=== PATIENT | male | born 1980 | race Caucasian/White ===

== ENCOUNTER 2018-08-14 23:15 | Emergency (ER) | payer OTHER ==
[2018-08-14 23:28] VITALS: TEMP 97.9
[2018-08-15] MEDS ORDERED: LORazepam 1 MG TAB PO STA (00:26)
--- NOTE | 2018-08-15 00:27 | ED ---
Anxiety HPI - General Chief Complaint: Anxiety Stated Complaint: anxiety Time Seen by Provider: 08/14/18 23:44 Source: patient Mode of arrival: ambulatory - History of Present Illness Initial Comments: 38-year-old male patient presents to the emergency department today for evaluation of increased anxiety. Patient states that around 4:30 this afternoon he started feeling anxious. States that since then his symptoms have worsened and include feeling "foggy", has had intermittent periods of dizziness , and feels "out of it". Patient does admit that he had little sleep last evening. States he has been up since 4:30 this morning. States that he does take Paxil to help with anxiety but does not take any abortive medications for panic attacks. He denies any fever, chills, cough, nasal congestion, sore throat. Denies any chest pain or trouble breathing. Denies any current abdominal pain, nausea, or vomiting. The patient does have history of anxiety and panic attacks. States that his started out his usual panic attack but the did have a couple new symptoms including the thought disturbance and dizziness. Patient also admits that he has not eaten very much today. Patient denies any recent rash, diarrhea, constipation, back pain, numbness, tingling, weakness, hematuria, dysuria, urinary urgency, urinary frequency, headache, visual changes, or any other complaints. - Related Data Home Medications: Home Medications Medication Instructions Recorded Confirmed Desvenlafaxine Succinate [Pristiq 50 mg PO DAILY 11/29/13 01/13/16 ER] Propranolol HCl [Inderal] 80 mg PO DAILY 11/29/13 01/13/16 Omeprazole 20 mg PO DAILY 01/11/16 01/13/16 Allergies/Adverse Reactions: Allergies Allergy/AdvReac Type Severity Reaction Status Date / Time Penicillins Allergy Mild Rash/Hives Verified 01/13/16 09:42 acetaminophen [From Vicodin] Allergy Dyspnea Verified 01/13/16 09:42 hydrocodone bitartrate Allergy Dyspnea Verified 01/13/16 09:42 [From Vicodin] Review of Systems ROS Statement: Those systems with pertinent positive or pertinent negative responses have been documented in the HPI. ROS Other: All systems not noted in ROS Statement are negative. Past Medical History Past Medical History: Hypertension, Sleep Apnea/CPAP/BIPAP Additional Past Medical History / Comment(s): swallowing difficulties History of Any Multi-Drug Resistant Organisms: None Reported Past Surgical History: No Surgical Hx Reported Additional Past Surgical History / Comment(s): all teeth removed Past Anesthesia/Blood Transfusion Reactions: Motion Sickness Additional Past Anesthesia/Blood Transfusion Reaction / Comment(s): states has never had anesthesia Past Psychological History: Anxiety, Depression, Panic Disorder Smoking Status: Former smoker Past Alcohol Use History: None Reported Past Drug Use History: None Reported - Past Family History Father Family Medical History: Coronary Artery Disease (CAD) Brother(s) Family Medical History: Coronary Artery Disease (CAD) Additional Family Medical History / Comment(s): tricupsid valve replacement General Exam Limitations: no limitations General appearance: alert, in no apparent distress, other (This is a well- developed, well-nourished adult male patient in no acute distress. Vital signs upon presentation are temperature 97.9F, pulse 97, respirations 18, blood pressure 143/91, pulse ox 99% on room air.) Eye exam: Present: normal appearance, PERRL, EOMI. Absent: scleral icterus, conjunctival injection, nystagmus, periorbital swelling ENT exam: Present: normal exam, mucous membranes moist, TM's normal bilaterally Respiratory exam: Present: normal lung sounds bilaterally. Absent: respiratory distress, wheezes, rales, rhonchi, stridor Cardiovascular Exam: Present: regular rate, normal rhythm, normal heart sounds. Absent: systolic murmur, diastolic murmur, rubs, gallop, clicks GI/Abdominal exam: Present: soft, normal bowel sounds. Absent: distended, tenderness, guarding, rebound, rigid Neurological exam: Present: alert, oriented X3, CN II-XII intact, other ( Strength in upper extremities is 5/5.) Psychiatric exam: Present: normal affect, normal mood Skin exam: Present: warm, dry, intact, normal color. Absent: rash Course Vital Signs 08/14/18 08/15/18 23:23 00:37 Temperature 97.9 F Pulse Rate 97 86 Respiratory 18 19 Rate Blood Pressure 143/91 143/88 O2 Sat by Pulse 99 99 Oximetry Medical Decision Making - Medical Decision Making 38-year-old male patient presented to the emergency department today for complaints of increased anxiety, mental fog, and some dizziness. Physical examination is unremarkable. Patient is neurologically intact with no focal deficits. Tympanic membranes appear normal. Patient did admit to history of anxiety and panic attacks. Patient states symptoms are consistent with his usual panic attacks other than the new symptoms of mental fog and dizziness. Patient also admitted that he had not eaten very much today and had very little sleep last evening and had been awake since 04 30 this morning. I feel his symptoms are related to a combination of anxiety and sleep deprivation.. Processes appear intact, again he is neurologically intact has no focal deficits. We will administer Ativan here in the emergency department. Discharged home to rest. He'll be given the day off of work. He is instructed to return immediately should his symptoms change or worsen. Return parameters were discussed in detail. He verbalizes understanding and agrees with this plan. Disposition Clinical Impression: Anxiety, Dizziness Disposition: HOME SELF-CARE Condition: Good Instructions (If sedation given, give patient instructions): Generalized Anxiety Disorder (ED), Dizziness (ED) Additional Instructions: Follow-up with her primary care physician for further evaluation in 1-2 days. Return to the emergency department immediately for any new, worsening, or concerning symptoms. Is patient prescribed a controlled substance at d/c from ED?: No Referrals: Robert Baker DO [Primary Care Provider] - 1-2 days Time of Disposition: 00:27
[2018-08-15 01:13] VITALS: BP 143/88; PULSE 86; RESP 19
== END 2018-08-15 00:37 | disposition home or self-care (01) ==
LOC: EC 23:15
DX: F41.0 Panic disorder [episodic paroxysmal anxiety] (principal); R42 Dizziness and giddiness; H53.9 Unspecified visual disturbance; I10 Essential (primary) hypertension; F32.9 Major depressive disorder, single episode, unspecified; G47.30 Sleep apnea, unspecified; Z99.89 Dependence on other enabling machines and devices; Z87.891 Personal history of nicotine dependence; Z79.899 Other long term (current) drug therapy; Z88.0 Allergy status to penicillin; Z88.5 Allergy status to narcotic agent
CPT/HCPCS: 99282

== ENCOUNTER 2018-10-08 15:17 | Emergency (ER) | payer OTHER ==
[2018-10-08] MEDS ORDERED: LORazepam 1 MG TAB PO STA (15:49)
--- NOTE | 2018-10-08 16:25 | ED ---
Anxiety HPI - General Chief Complaint: Anxiety Stated Complaint: Panic attack Time Seen by Provider: 10/08/18 15:22 Source: patient, RN notes reviewed Mode of arrival: EMS Limitations: no limitations - History of Present Illness Initial Comments: 38-year-old male presents emergency department via EMS for acute panic attack/anxiety. Patient states she's been having worsening symptoms over the last 2 months. Patient does admit that he's had increased stressors including work, home life, other reasons. Patient states he is currently on Pristiq he st ates that he was switched from Paxil to Pristiq. Patient used to be on Pristiq and helped. Patient states he is on generic medication at this time states it does not seem be as effective as the trade name. Patient states that today he became very anxious states he started to do his breathing exercises and states that did not help. He states that he started getting tingly in his extremities. Patient denies any current chest pain or shortness breath. He doesn't at the symptoms are improved since arriving to the emergency department. Patient states she was given Xanax states that he tries not to take them. Patient denies any homicidal or suicidal ideation. Patient is concerned that there may be something else going on he has had recent lab work which was benign. - Related Data Home Medications: Home Medications Medication Instructions Recorded Confirmed Desvenlafaxine Succinate [Pristiq 50 mg PO DAILY 11/29/13 10/08/18 ER] Omeprazole 20 mg PO DAILY 01/11/16 10/08/18 ALPRAZolam [Xanax] 0.5 mg PO DAILY PRN 10/08/18 10/08/18 Metoprolol Succinate [Toprol XL] 25 mg PO HS 10/08/18 10/08/18 Allergies/Adverse Reactions: Allergies Allergy/AdvReac Type Severity Reaction Status Date / Time Penicillins Allergy Mild Rash/Hives Verified 10/08/18 16:19 acetaminophen [From Vicodin] Allergy Dyspnea Verified 10/08/18 16:19 hydrocodone bitartrate Allergy Dyspnea Verified 10/08/18 16:19 [From Vicodin] Review of Systems ROS Statement: Those systems with pertinent positive or pertinent negative responses have been documented in the HPI. ROS Other: All systems not noted in ROS Statement are negative. Past Medical History Past Medical History: Hypertension, Sleep Apnea/CPAP/BIPAP Additional Past Medical History / Comment(s): swallowing difficulties History of Any Multi-Drug Resistant Organisms: None Reported Past Surgical History: No Surgical Hx Reported Additional Past Surgical History / Comment(s): all teeth removed Past Anesthesia/Blood Transfusion Reactions: Motion Sickness Additional Past Anesthesia/Blood Transfusion Reaction / Comment(s): states has never had anesthesia Past Psychological History: Anxiety, Depression, Panic Disorder Smoking Status: Former smoker Past Alcohol Use History: None Reported Past Drug Use History: None Reported - Past Family History Father Family Medical History: Coronary Artery Disease (CAD) Brother(s) Family Medical History: Coronary Artery Disease (CAD) Additional Family Medical History / Comment(s): tricupsid valve replacement General Exam Limitations: no limitations General appearance: alert, in no apparent distress Head exam: Present: atraumatic, normocephalic, normal inspection Respiratory exam: Present: normal lung sounds bilaterally. Absent: respiratory distress, wheezes, rales, rhonchi, stridor Cardiovascular Exam: Present: regular rate, normal rhythm, normal heart sounds. Absent: systolic murmur, diastolic murmur, rubs, gallop, clicks GI/Abdominal exam: Present: soft, normal bowel sounds. Absent: distended, tenderness, guarding, rebound, rigid Neurological exam: Present: alert, oriented X3, CN II-XII intact, reflexes normal. Absent: motor sensory deficit Psychiatric exam: Present: anxious Skin exam: Present: warm, dry, intact, normal color. Absent: rash Course Vital Signs 10/08/18 15:20 Temperature 97.7 F Pulse Rate 73 Respiratory 20 Rate Blood Pressure 150/80 O2 Sat by Pulse 96 Oximetry Medical Decision Making - Medical Decision Making 38-year-old male presented for anxiety. Patient had classic anxiety symptoms and has a history of this. Patient is stable at this time. Patient is concerned something else was present. I did offer lab work which she denied. We did discuss discussed with his PCP about taking trade name medication versus generic as he feels this is not as effective. Patient is stable for discharge. He is not suicidal or homicidal. Disposition Clinical Impression: Acute anxiety, Panic attack Disposition: HOME SELF-CARE Condition: Stable Instructions (If sedation given, give patient instructions): Generalized Anxiety Disorder (ED) Additional Instructions: Please return to the Emergency Department if symptoms worsen or any other concerns. Is patient prescribed a controlled substance at d/c from ED?: No Referrals: Robert Baker DO [Primary Care Provider] - 1-2 days Time of Disposition: 16:25
[2018-10-08 16:58] VITALS: BP 142/93; PULSE 77; RESP 16; TEMP 98
== END 2018-10-08 16:40 | disposition home or self-care (01) ==
LOC: EC 15:17
DX: F41.0 Panic disorder [episodic paroxysmal anxiety] (principal); I10 Essential (primary) hypertension; F32.9 Major depressive disorder, single episode, unspecified; G47.30 Sleep apnea, unspecified; Z99.89 Dependence on other enabling machines and devices; Z87.891 Personal history of nicotine dependence; Z53.29 Procedure and treatment not carried out because of patient's decision for other reasons; Z79.899 Other long term (current) drug therapy; Z88.0 Allergy status to penicillin; Z88.6 Allergy status to analgesic agent; Z88.5 Allergy status to narcotic agent; Z63.8 Other specified problems related to primary support group
CPT/HCPCS: 99283

== ENCOUNTER → 2018-10-17 | Outpatient (CLI) | payer OTHER ==
--- NOTE | 2018-10-17 10:16 | P.STRESS ---
- Stress Test Note Stress Test Results/Findings: Exam Performed: stress test Exam Date: 10/17/18 Reason for Exam: CHEST PAIN Height: 6 ft 4 in Weight: 145.15 kg Protocol: SARWAT Stage: 3 Duration of Exercise: 9:00 Resting Heart Rate: 80 Resting Blood Pressure: 139/94 Maximum Achieved Heart Rate: 167 Maximum Achieved Blood Pressure: 185/90 85% PMHR: 156 100% PMHR: 183 METS: 10.5 Technologist Comment: Stress Test Results/Findings: This is a 38-year-old gentleman with history of hypertension being evaluated for symptoms of chest pain, shortness of breath and palpitations.. Baseline EKG showed sinus rhythm with normal MS interval and QRS duration. Blood pressure at rest is 139/94 with pulse rate of 80. Patient walked on the Sarwat protocol for about 9 minutes achieving a maximal heart rate of 167 with a blood pressure 185/90. EKGs taken during and after the exercise did not reveal any significant changes from the baseline. Patient did not express any chest pain. Final impression #1: Negative stress test #2. Patient did not express any chest pain. No arrhythmias detected #4. Exercise capacity is average.
--- NOTE | 2018-10-22 08:48 | EST ---
Stress Test Results/Findings: Exam Performed: stress test Exam Date: 10/17/18 Reason for Exam: CHEST PAIN Height: 6 ft 4 in Weight: 145.15 kg Protocol: SARWAT Stage: 3 Duration of Exercise: 9:00 Resting Heart Rate: 80 Resting Blood Pressure: 139/94 Maximum Achieved Heart Rate: 167 Maximum Achieved Blood Pressure: 185/90 85% PMHR: 156 100% PMHR: 183 METS: 10.5 Technologist Comment: Stress Test Results/Findings: This is a 38-year-old gentleman with history of hypertension being evaluated for symptoms of chest pain, shortness of breath and palpitations.. Baseline EKG showed sinus rhythm with normal LA interval and QRS duration. Blood pressure at rest is 139/94 with pulse rate of 80. Patient walked on the Sarwat protocol for about 9 minutes achieving a maximal heart rate of 167 with a blood pressure 185/90. EKGs taken during and after the exercise did not reveal any significant changes from the baseline. Patient did not express any chest pain. Final impression #1: Negative stress test #2. Patient did not express any chest pain. No arrhythmias detected #4. Exercise capacity is average. MTDD
== END ==
LOC: RADNMMAIN 08:56
PROVIDERS: ATTEND Family Medicine
DX: R07.89 Other chest pain (principal)
CPT/HCPCS: 93017

== ENCOUNTER → 2019-01-08 | Outpatient (CLI) | payer OTHER ==
--- NOTE | 2019-01-26 10:41 | P.PN ---
Progress Note - Text Progress Note Date: 01/26/19 REPORT ON THE 14 DAY EVENT MONITOR: Baseline EKG showed sinus rhythm. Patient remained mostly in sinus rhythm with episodes of sinus tachycardia and bradycardia. Patient had occasional APCs and PVCs but no sustained arrhythmias are detected . Patient complained of several symptoms including shortness of breath and shortness of breath, not correlating with any significant cardiac events. Final impression: #1. Sinus rhythm with episodes of sinus bradycardia and tachycardia #2. Occasional APCs. #3. Occasional PVCs. #4. Patient's symptoms of dizziness and lightheadedness did not correlate with any cardiac events.
--- NOTE | 2019-01-29 16:52 | EM ---
REPORT ON THE 14 DAY EVENT MONITOR: Baseline EKG showed sinus rhythm. Patient remained mostly in sinus rhythm with episodes of sinus tachycardia and bradycardia. Patient had occasional APCs and PVCs but no sustained arrhythmias are detected . Patient complained of several symptoms including shortness of breath and shortness of breath, not correlating with any significant cardiac events. Final impression: #1. Sinus rhythm with episodes of sinus bradycardia and tachycardia #2. Occasional APCs. #3. Occasional PVCs. #4. Patient's symptoms of dizziness and lightheadedness did not correlate with any cardiac events. MTDD
== END | disposition home or self-care (01) ==
LOC: RADECHMAIN 12:26
PROVIDERS: ATTEND Family Medicine
DX: R00.0 Tachycardia, unspecified (principal); R00.1 Bradycardia, unspecified
CPT/HCPCS: 93270

== ENCOUNTER 2019-03-06 12:17 | Emergency (ER) | payer OTHER ==
[2019-03-06] MEDS ORDERED: SODIUM CHLORIDE 0.9% 1,000 ML IV STA (12:46)
[2019-03-06] MEDS ORDERED: ONDANSETRON 4 MG/2 ML VIAL IVP STA (12:48)
[2019-03-06 13:00] LABS: Basophils # (A) 0.1 k/uL (0-0.2); Basophils % (A) 1 %; Eosinophils # (A) 0.2 k/uL (0-0.7); Eosinophils % (A) 3 %; HCT 48.7 % (39.0-53.0); HGB 16.3 gm/dL (13.0-17.5); Lymphocytes # (A) 2.2 k/uL (1.0-4.8); Lymphocytes % (A) 33 %; MCHC 33.6 g/dL (31.0-37.0); MCV 89.4 fL (80.0-100.0); Mean Platelet Volume 8.9; Monocytes # (A) 0.3 k/uL (0-1.0); Monocytes % (A) 4 %; Neutrophils # (A) 3.7 k/uL (1.3-7.7); Neutrophils % (A) 56 %; Platelet Count 221 k/uL (150-450); RBC 5.45 m/uL (4.30-5.90); WBC 6.5 k/uL (3.8-10.6)
[2019-03-06 13:09] LABS: INR 0.9 (<1.2); Partial Thromboplastin Time 25.7 sec (22.0-30.0); Prothrombin Time 9.6 sec (9.0-12.0)
[2019-03-06 13:11] LABS: ALT 55 U/L (21-72); AST 32 U/L (17-59); African American GFR (CKD) >90 (>60 ml/min/1.73 sqM); Albumin 4.6 g/dL (3.5-5.0); Alkaline Phosphatase 83 U/L (38-126); Anion Gap 12 mmol/L; Blood Urea Nitrogen 10 mg/dL (9-20); Calcium 9.5 mg/dL (8.4-10.2); Carbon Dioxide 24 mmol/L (22-30); Chloride 107 mmol/L (98-107); Glucose 124 mg/dL (74-99); Potassium 3.9 mmol/L (3.5-5.1); Sodium 143 mmol/L (137-145); Total Bilirubin 0.9 mg/dL (0.2-1.3); Total Protein 7.6 g/dL (6.3-8.2)
--- NOTE | 2019-03-06 13:20 | ED ---
Arrhythmia/Palpitations HPI - General Chief Complaint: Arrhythmia/Palpitations Stated Complaint: palpitations, lt arm numbness Time Seen by Provider: 03/06/19 12:31 Source: patient Mode of arrival: ambulatory Limitations: no limitations - History of Present Illness Initial Comments: Patient is a 38-year-old male with past medical history of anxiety, hypertension and presents emergency Department with complaints of lightheadedness, palpitations for approximately 30-40 minutes. Patient states he was at home doing dishes and cleaning up when he started feeling lightheaded. Patient also noticed he had a tingling and numbness sensation down his left arm and then his right arm followed. Patient states he did have chest tightness initially but that has since resolved. Patient denies any chest pain, vomiting, diarrhea, fever, chills. Patient denies any recent illnesses. Patient does admit to some nausea right now. Patient states he was taking Adderall for approximately 2 weeks but stopped taking at a week ago due to increase in his anxiety. Patient has no other complaints at this time. Upon arrival to ER, vital signs are stable, afebrile. - Related Data Home Medications Medication Instructions Recorded Confirmed Desvenlafaxine Succinate [Pristiq 100 mg PO DAILY 11/29/13 03/06/19 ER] Omeprazole 20 mg PO DAILY 01/11/16 03/06/19 Metoprolol Succinate [Toprol XL] 25 mg PO HS 10/08/18 03/06/19 Allergies Allergy/AdvReac Type Severity Reaction Status Date / Time Penicillins Allergy Mild Rash/Hives Verified 03/06/19 12:47 hydrocodone bitartrate AdvReac Dyspnea Verified 03/06/19 12:47 [From Vicodin] Review of Systems ROS Statement: Those systems with pertinent positive or pertinent negative responses have been documented in the HPI. ROS Other: All systems not noted in ROS Statement are negative. Past Medical History Past Medical History: Hypertension, Sleep Apnea/CPAP/BIPAP Additional Past Medical History / Comment(s): swallowing difficulties History of Any Multi-Drug Resistant Organisms: None Reported Past Surgical History: No Surgical Hx Reported Additional Past Surgical History / Comment(s): all teeth removed Past Anesthesia/Blood Transfusion Reactions: Motion Sickness Additional Past Anesthesia/Blood Transfusion Reaction / Comment(s): states has never had anesthesia Past Psychological History: Anxiety, Depression, Panic Disorder Smoking Status: Former smoker Past Alcohol Use History: None Reported Past Drug Use History: None Reported - Past Family History Father Family Medical History: Coronary Artery Disease (CAD) Brother(s) Family Medical History: Coronary Artery Disease (CAD) Additional Family Medical History / Comment(s): tricupsid valve replacement General Exam - General Exam Comments Initial Comments: GENERAL: Well-appearing, well-nourished and in mild distress secondary to lightheadedness. HEAD: Atraumatic, normocephalic. EYES: Pupils equal round and reactive to light, extraocular movements intact, sclera anicteric, conjunctiva are normal. ENT: TMs normal, nares patent, oropharynx clear without exudates. Moist mucous membranes. NECK: Normal range of motion, supple without lymphadenopathy or JVD. LUNGS: Breath sounds clear to auscultation bilaterally and equal. No wheezes rales or rhonchi. HEART: Regular rate and rhythm without murmurs, rubs or gallops. ABDOMEN: Soft, nontender, normoactive bowel sounds. No guarding, no rebound. No masses appreciated. : Deferred EXTREMITIES: Normal range of motion, no pitting or edema. No clubbing or cyanosis. NEUROLOGICAL: Cranial nerves II through XII grossly intact. Normal speech, normal gait. PSYCH: Normal mood, normal affect. SKIN: Warm, Dry, normal turgor, no rashes or lesions noted. Patient was slightly diaphoretic while examining patient however he had just received a blood draw and states that this is his normal reaction. Limitations: no limitations Course Vital Signs 03/06/19 03/06/19 12:21 15:00 Temperature 97.6 F 97.4 F L Pulse Rate 92 66 Respiratory 18 17 Rate Blood Pressure 137/86 127/78 O2 Sat by Pulse 98 95 Oximetry EKG Findings - EKG Comments: EKG Findings:: Ventricular rate 76, IL interval 144, QTC 452. Normal sinus rhythm. No acute ST segment changes. Medical Decision Making - Medical Decision Making Patient is a 38-year-old male presenting with palpitations or to arrival. Patient has history of anxiety. Patient states he was cleaning the house when he started feeling lightheaded. Patient is denying chest pain upon arrival. Vital signs are stable, afebrile. Patient's exam is unremarkable. CBC, CMP are within normal limits. Troponin is normal. EKG shows no acute abnormalities. Patient received fluids and is feeling improvement. Patient agrees this is most likely related to his anxiety. At this point patient is stable for discharge. Vital signs remained stable. Return parameters were discussed with the patient he verbalizes understanding. Patient is discussed with Dr. Rhodes. - Lab Data Result diagrams: 03/06/19 12:40 03/06/19 12:40 Lab Results 03/06/19 03/06/19 03/06/19 Range/Units 12:40 12:40 12:40 WBC 6.5 (3.8-10.6) k/uL RBC 5.45 (4.30-5.90) m/uL Hgb 16.3 (13.0-17.5) gm/dL Hct 48.7 (39.0-53.0) % MCV 89.4 (80.0-100.0) fL MCH 30.0 (25.0-35.0) pg MCHC 33.6 (31.0-37.0) g/dL RDW 13.0 (11.5-15.5) % Plt Count 221 (150-450) k/uL Neutrophils % 56 % Lymphocytes % 33 % Monocytes % 4 % Eosinophils % 3 % Basophils % 1 % Neutrophils # 3.7 (1.3-7.7) k/uL Lymphocytes # 2.2 (1.0-4.8) k/uL Monocytes # 0.3 (0-1.0) k/uL Eosinophils # 0.2 (0-0.7) k/uL Basophils # 0.1 (0-0.2) k/uL PT 9.6 (9.0-12.0) sec INR 0.9 (<1.2) APTT 25.7 (22.0-30.0) sec Sodium 143 (137-145) mmol/L Potassium 3.9 (3.5-5.1) mmol/L Chloride 107 (98-107) mmol/L Carbon Dioxide 24 (22-30) mmol/L Anion Gap 12 mmol/L BUN 10 (9-20) mg/dL Creatinine 0.85 (0.66-1.25) mg/dL Est GFR (CKD-EPI)AfAm >90 (>60 ml/min/1.73 sqM) Est GFR (CKD-EPI)NonAf >90 (>60 ml/min/1.73 sqM) Glucose 124 H (74-99) mg/dL Calcium 9.5 (8.4-10.2) mg/dL Total Bilirubin 0.9 (0.2-1.3) mg/dL AST 32 (17-59) U/L ALT 55 (21-72) U/L Alkaline Phosphatase 83 (38-126) U/L Troponin I (0.000-0.034) ng/mL Total Protein 7.6 (6.3-8.2) g/dL Albumin 4.6 (3.5-5.0) g/dL 03/06/19 Range/Units 12:40 WBC (3.8-10.6) k/uL RBC (4.30-5.90) m/uL Hgb (13.0-17.5) gm/dL Hct (39.0-53.0) % MCV (80.0-100.0) fL MCH (25.0-35.0) pg MCHC (31.0-37.0) g/dL RDW (11.5-15.5) % Plt Count (150-450) k/uL Neutrophils % % Lymphocytes % % Monocytes % % Eosinophils % % Basophils % % Neutrophils # (1.3-7.7) k/uL Lymphocytes # (1.0-4.8) k/uL Monocytes # (0-1.0) k/uL Eosinophils # (0-0.7) k/uL Basophils # (0-0.2) k/uL PT (9.0-12.0) sec INR (<1.2) APTT (22.0-30.0) sec Sodium (137-145) mmol/L Potassium (3.5-5.1) mmol/L Chloride (98-107) mmol/L Carbon Dioxide (22-30) mmol/L Anion Gap mmol/L BUN (9-20) mg/dL Creatinine (0.66-1.25) mg/dL Est GFR (CKD-EPI)AfAm (>60 ml/min/1.73 sqM) Est GFR (CKD-EPI)NonAf (>60 ml/min/1.73 sqM) Glucose (74-99) mg/dL Calcium (8.4-10.2) mg/dL Total Bilirubin (0.2-1.3) mg/dL AST (17-59) U/L ALT (21-72) U/L Alkaline Phosphatase (38-126) U/L Troponin I <0.012 (0.000-0.034) ng/mL Total Protein (6.3-8.2) g/dL Albumin (3.5-5.0) g/dL Disposition Clinical Impression: Anxiety Disposition: HOME SELF-CARE Condition: Stable Instructions (If sedation given, give patient instructions): Anxiety (ED) Additional Instructions: Please return to the Emergency Department if symptoms worsen or any other concerns. Is patient prescribed a controlled substance at d/c from ED?: No Referrals: Robert Baker DO [Primary Care Provider] - 1-2 days
--- NOTE | 2019-03-06 13:38 | XR ---
EXAMINATION TYPE: XR chest 2V DATE OF EXAM: 03/06/2019 COMPARISON: NONE HISTORY: Chest pain TECHNIQUE: Frontal and lateral views of the chest are obtained. FINDINGS: There is no focal air space opacity. No evidence for pneumothorax. No pleural effusion. The cardiac silhouette size is within normal limits. The osseous structures are grossly intact. IMPRESSION: 1. No acute cardiopulmonary process.
[2019-03-06 15:02] VITALS: BP 127/78; PULSE 66; RESP 17; TEMP 97.4
== END 2019-03-06 15:01 | disposition home or self-care (01) ==
LOC: EC 12:17
DX: F41.9 Anxiety disorder, unspecified (principal); I10 Essential (primary) hypertension; G47.30 Sleep apnea, unspecified; F32.9 Major depressive disorder, single episode, unspecified; Z87.891 Personal history of nicotine dependence; Z88.0 Allergy status to penicillin; Z88.5 Allergy status to narcotic agent; Z79.899 Other long term (current) drug therapy; Z99.89 Dependence on other enabling machines and devices
CPT/HCPCS: 99285; 96374; 96361; 36415; 93005; 80053; 84484; 85025; 85610; 85730; 71046; J2405

== ENCOUNTER 2020-09-13 22:40 | Emergency (ER) | payer OTHER ==
[2020-09-13 22:49] VITALS: RESP 16
--- NOTE | 2020-09-13 22:51 | ED ---
Lower Extremity Injury HPI - General Chief Complaint: Extremity Injury, Lower Stated Complaint: Knee Pain Time Seen by Provider: 09/13/20 22:48 Source: patient, EMS Mode of arrival: EMS Limitations: no limitations - History of Present Illness Initial Comments: 40-year-old male presents to emergency Department with a chief complaint of left knee pain. Patient reports incident occurred about 5 while he was crouching down in attempting to walk forward. Patient reports he felt a sudden "pop" followed by significant amount of pain. Patient reports she has been alternating between Tylenol and Motrin to help alleviate the pain. Reports the pain is exacerbated with extension and alleviated with flexion. Denies any numbness or tingling. States today he was moving a couch and a similar injury occurred and now he is not able to ambulate on it. Denies any swelling or erythema on the left knee. Denies any calf tenderness. - Related Data Home Medications Medication Instructions Recorded Confirmed Desvenlafaxine Succinate [Pristiq 100 mg PO DAILY 11/29/13 03/06/19 ER] Omeprazole 20 mg PO DAILY 01/11/16 03/06/19 Metoprolol Succinate [Toprol XL] 25 mg PO HS 10/08/18 03/06/19 Allergies Allergy/AdvReac Type Severity Reaction Status Date / Time Penicillins Allergy Mild Rash/Hives Verified 03/06/19 12:47 hydrocodone bitartrate AdvReac Dyspnea Verified 03/06/19 12:47 [From Vicodin] Review of Systems ROS Statement: Those systems with pertinent positive or pertinent negative responses have been documented in the HPI. ROS Other: All systems not noted in ROS Statement are negative. Past Medical History Past Medical History: Hypertension, Sleep Apnea/CPAP/BIPAP Additional Past Medical History / Comment(s): swallowing difficulties History of Any Multi-Drug Resistant Organisms: None Reported Past Surgical History: No Surgical Hx Reported, Section Additional Past Surgical History / Comment(s): all teeth removed Past Anesthesia/Blood Transfusion Reactions: Motion Sickness Additional Past Anesthesia/Blood Transfusion Reaction / Comment(s): states has never had anesthesia Past Psychological History: Anxiety, Depression, Panic Disorder Smoking Status: Former smoker Past Alcohol Use History: None Reported Past Drug Use History: Marijuana - Past Family History Father Family Medical History: Coronary Artery Disease (CAD) Brother(s) Family Medical History: Coronary Artery Disease (CAD) Additional Family Medical History / Comment(s): tricupsid valve replacement General Exam Limitations: no limitations General appearance: alert, in no apparent distress, obese Head exam: Present: atraumatic, normocephalic, normal inspection Eye exam: Present: normal appearance, PERRL, EOMI Pupils: Present: normal accommodation ENT exam: Present: normal exam, normal oropharynx, mucous membranes moist Neck exam: Present: normal inspection, full ROM. Absent: tenderness Respiratory exam: Present: normal lung sounds bilaterally. Absent: respiratory distress Cardiovascular Exam: Present: regular rate, normal rhythm, normal heart sounds Extremities exam: Present: normal inspection, tenderness (Inferior patellar lateral tenderness of the left knee. Negative anterior drawer. Positive Vincent.), normal capillary refill, other (Palpable DP and PT bilaterally.). Absent: full ROM (Limited range of motion with extension of the left knee), pedal edema, joint swelling, calf tenderness Back exam: Present: normal inspection, full ROM Neurological exam: Present: alert, oriented X3 Psychiatric exam: Present: normal affect, normal mood Skin exam: Present: warm, dry, intact, normal color Course Vital Signs 09/13/20 22:41 Temperature 97.7 F Pulse Rate 85 Respiratory 16 Rate Blood Pressure 149/84 O2 Sat by Pulse 96 Oximetry Medical Decision Making - Medical Decision Making 40-year-old male presents to the emergency department with a chief complaint of left knee pain. On physical examination, patient has limited range of motion with extension due to pain. He is otherwise neurovascularly intact in the left lower extremity. X-ray shows no acute processes but there is small joint effusion. Patient was given Toradol for pain. On reevaluation, he reports significant improvement in his symptoms. He is able to fully extend the knee now. I applied Art wrap. He has an appointment scheduled tomorrow with an medical reimbursement specialist. Return parameters discussed with patient was understanding and agreeable. Case discussed with Disposition Clinical Impression: Left knee injury, Joint effusion Disposition: HOME SELF-CARE Condition: Stable Instructions (If sedation given, give patient instructions): Swollen Knee Joint (ED) Additional Instructions: Follow-up with medical reimbursement specialist. Apply ice compresses. Return to emergency department if symptoms worsen. Is patient prescribed a controlled substance at d/c from ED?: No Referrals: Robert Baker DO [Primary Care Provider] - 1-2 days Time of Disposition: 00:04
[2020-09-13] MEDS ORDERED: KETOROLAC 15 MG/ML 1 ML VIAL IM STA (22:57)
--- NOTE | 2020-09-13 23:52 | XR ---
EXAMINATION TYPE: XR knee complete LT DATE OF EXAM: 09/13/2020 COMPARISON: NONE HISTORY: Knee injury. Pain TECHNIQUE: 3 views FINDINGS: I see no fracture nor dislocation. Joint spaces are normal. There is minute knee joint effu marco antonio. IMPRESSION: Small joint effusion. No fracture seen.
[2020-09-14 01:09] VITALS: BP 129/81; PULSE 78; TEMP 98
== END 2020-09-14 00:58 | disposition home or self-care (01) ==
LOC: EC 22:40
DX: S80.02XA Contusion of left knee, initial encounter (principal); I10 Essential (primary) hypertension; G47.30 Sleep apnea, unspecified; F41.9 Anxiety disorder, unspecified; F32.9 Major depressive disorder, single episode, unspecified; Z87.891 Personal history of nicotine dependence; Z88.0 Allergy status to penicillin; X58.XXXA Exposure to other specified factors, initial encounter
CPT/HCPCS: 96372 ×2; 99284 ×2; 73562; J1885

== ENCOUNTER → 2020-09-27 | Outpatient (CLI) | payer OTHER ==
--- NOTE | 2020-09-27 12:21 | MR ---
EXAMINATION TYPE: MR knee LT wo con DATE OF EXAM: 09/27/2020 COMPARISON: X-rays 09/13/2020 HISTORY: Left Knee Pain, Front outter side wraps around to front of knee. Swelling. TECHNIQUE: Multiplanar, multisequence imaging of the left knee is performed without IV contrast. FINDINGS: MEDIAL MENISCUS: Linear signal in the posterior horn of the medial meniscus extending to the articula r surface compatible with simple linear tear. LATERAL MENISCUS: Intrasubstance signal in the lateral meniscus most typical of mucoid degeneration. CRUCIATE LIGAMENTS: The anterior and posterior cruciate ligaments are intact and unremarkable. COLLATERAL LIGAMENTS: The medial collateral ligament and lateral collateral ligament complex are inta ct and unremarkable. EXTENSOR MECHANISM: Visualized quadriceps and patellar tendons are intact. EFFUSION: There is a small amount of fluid in the suprapatellar bursa. POPLITEAL CYST: No popliteal/price cyst. TRICOMPARTMENT SPACES: There is grade 3 localized abnormal signal in the articular cartilage of the l ateral femur compatible with chondromalacia best noted on sagittal image 11 BONE MARROW SIGNAL: No focal abnormal marrow signal is appreciated. IMPRESSION: 1. Simple linear tear posterior horn medial meniscus 2. 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
== END ==
LOC: RADMRIMAIN 09:49
PROVIDERS: ATTEND Orthopaedic Surgery Sports Medicine
DX: M23.322 Other meniscus derangements, posterior horn of medial meniscus, left knee (principal); M94.262 Chondromalacia, left knee

== ENCOUNTER 2021-10-10 00:53 | Emergency (ER) | payer OTHER ==
[2021-10-10 01:03] VITALS: BP 148/99; PULSE 77; RESP 19; TEMP 98
--- NOTE | 2021-10-10 01:41 | XR ---
EXAMINATION TYPE: XR knee complete RT DATE OF EXAM: 10/10/2021 COMPARISON: NONE HISTORY: Pain TECHNIQUE: 3 views FINDINGS: I see no fracture nor dislocation. Joint spaces are normal. There is no sign of knee joint effusion. IMPRESSION: Negative right knee exam. No fracture.
--- NOTE | 2021-10-10 02:00 | ED ---
Lower Extremity Injury HPI - General Chief Complaint: Extremity Injury, Lower Stated Complaint: [facility] RT knee injury Source: patient, RN notes reviewed, old records reviewed Mode of arrival: ambulatory Limitations: no limitations - History of Present Illness Initial Comments: This is a 41-year-old male DF for evaluation of right knee injury patient has history of left knee injury so presents DF for evaluation regards to his left knee injury. Patient has no recent travel history or sick contacts. Patient does have a fall at work prior to arrival with right knee pain felt a right knee pop. Patient has history of left knee meniscus tear and this feels the same MD Complaint: knee injury (Right-sided) -: hour(s) Injury: Knee: Right Type of Injury: blunt, hyperextension Place: work Severity: moderate Severity scale (1-10): 6 Improves With: nothing Worsens With: weight bearing, movement, palpation Context: fall, running Associated Symptoms: snap/pop sensation, swelling Treatments Prior to Arrival: cold therapy - Related Data Home Medications Medication Instructions Recorded Confirmed Desvenlafaxine Succinate [Pristiq 100 mg PO DAILY 11/29/13 03/06/19 ER] Omeprazole 20 mg PO DAILY 01/11/16 03/06/19 Metoprolol Succinate [Toprol XL] 25 mg PO HS 10/08/18 03/06/19 Allergies Allergy/AdvReac Type Severity Reaction Status Date / Time Penicillins Allergy Mild Rash/Hives Verified 10/10/21 01:03 hydrocodone bitartrate AdvReac Dyspnea Verified 10/10/21 01:03 [From Vicodin] Review of Systems ROS Statement: Those systems with pertinent positive or pertinent negative responses have been documented in the HPI. ROS Other: All systems not noted in ROS Statement are negative. Past Medical History Past Medical History: Hypertension, Sleep Apnea/CPAP/BIPAP Additional Past Medical History / Comment(s): swallowing difficulties History of Any Multi-Drug Resistant Organisms: None Reported Past Surgical History: No Surgical Hx Reported Additional Past Surgical History / Comment(s): all teeth removed Past Anesthesia/Blood Transfusion Reactions: Motion Sickness Additional Past Anesthesia/Blood Transfusion Reaction / Comment(s): states has never had anesthesia Past Psychological History: Anxiety, Depression, Panic Disorder Smoking Status: Former smoker Past Alcohol Use History: None Reported Past Drug Use History: Marijuana - Past Family History Father Family Medical History: Coronary Artery Disease (CAD) Brother(s) Family Medical History: Coronary Artery Disease (CAD) Additional Family Medical History / Comment(s): tricupsid valve replacement General Exam General appearance: alert, in no apparent distress Head exam: Present: atraumatic, normocephalic, normal inspection Eye exam: Present: normal appearance, PERRL, EOMI. Absent: scleral icterus, conjunctival injection, periorbital swelling ENT exam: Present: normal exam, mucous membranes moist Neck exam: Present: normal inspection. Absent: tenderness, meningismus, lymphadenopathy Respiratory exam: Present: normal lung sounds bilaterally. Absent: respiratory distress, wheezes, rales, rhonchi, stridor Cardiovascular Exam: Present: regular rate, normal rhythm, normal heart sounds. Absent: systolic murmur, diastolic murmur, rubs, gallop, clicks GI/Abdominal exam: Present: soft, normal bowel sounds. Absent: distended, tenderness, guarding, rebound, rigid Extremities exam: Present: normal inspection, full ROM, normal capillary refill. Absent: tenderness, pedal edema, joint swelling, calf tenderness Back exam: Present: normal inspection Neurological exam: Present: alert, oriented X3, CN II-XII intact Psychiatric exam: Present: normal affect, normal mood Skin exam: Present: warm, dry, intact, normal color. Absent: rash Course Vital Signs 10/10/21 01:00 Temperature 98 F Pulse Rate 77 Respiratory 19 Rate Blood Pressure 148/99 O2 Sat by Pulse 98 Oximetry - Reevaluation(s) Reevaluation #1: 10/10/21 03:01 Medical record is reviewed Reevaluation #2: 10/10/21 03:01 Patient informed results and questions answered 10/10/21 03:01 Patient does not need time off work at this time Reevaluation #3: 10/10/21 03:01 Patient not requiring pain medication Medical Decision Making - Medical Decision Making 41 male to the ER for evaluation of right knee pain strain patient will follow- up with Dr. Brennan has he is seen and before for surgery for orthopedics. Patient can be discharged home - Radiology Data Radiology results: report reviewed (X-ray right knee is negative for acute disease), image reviewed Disposition Clinical Impression: Right knee sprain, Right knee pain Disposition: HOME SELF-CARE Condition: Good Instructions (If sedation given, give patient instructions): Knee Sprain (ED) Is patient prescribed a controlled substance at d/c from ED?: No Referrals: Robert Baker DO [Primary Care Provider] - 1-2 days
== END 2021-10-10 02:45 | disposition home or self-care (01) ==
LOC: EC 00:53
DX: S83.91XA Sprain of unspecified site of right knee, initial encounter (principal); I10 Essential (primary) hypertension; F32.A Depression, unspecified; F41.9 Anxiety disorder, unspecified; F12.90 Cannabis use, unspecified, uncomplicated; Z87.891 Personal history of nicotine dependence; Z79.899 Other long term (current) drug therapy; X50.1XXA Overexertion from prolonged static or awkward postures, initial encounter; Y99.0 Civilian activity done for income or pay
CPT/HCPCS: 99283

== ENCOUNTER → 2021-10-12 | Outpatient (CLI) | payer OTHER ==
--- NOTE | 2021-10-12 14:59 | XR ---
EXAMINATION TYPE: XR Hip Complete RT DATE OF EXAM: 10/12/2021 Comparison: None Clinical History: 41-year-old male pain after Rt hip injury S73.101A Findings: There is mild degenerative change of the right hip with marginal spurring and mild superolateral join t space narrowing. Collar osteophytes at the femoral head neck junction with an anterior and superior femoral head neck junction bony excrescence. No acute fracture, subluxation, dislocation. There appe ars to be mild degenerative spurring of the right SI joint. 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 Correlate wi th physical exam testing. No acute osseous abnormality seen.
== END | disposition home or self-care (01) ==
LOC: RADXRMAIN 14:11
PROVIDERS: ATTEND Emergency Medicine
DX: M16.11 Unilateral primary osteoarthritis, right hip (principal); M25.851 Other specified joint disorders, right hip
CPT/HCPCS: 73502

== ENCOUNTER 2022-01-23 23:25 | Emergency (ER) | payer BC, OTHER ==
[2022-01-23 23:29] VITALS: BP 134/81; PULSE 69; RESP 18; TEMP 98.4
[2022-01-24] MEDS ORDERED: SODIUM CHLORIDE 0.9% 1,000 ML IV STA (01:28)
[2022-01-24] MEDS ORDERED: ONDANSETRON 4 MG/2 ML VIAL IVP STA (01:28)
[2022-01-24] MEDS ORDERED: KETOROLAC 15 MG/ML 1 ML VIAL IVP STA (01:28)
[2022-01-24 01:58] LABS: Basophils # (A) 0.1 k/uL (0-0.2); Basophils % (A) 1 %; Eosinophils # (A) 0.2 k/uL (0-0.7); Eosinophils % (A) 2 %; HCT 47.6 % (39.0-53.0); HGB 16.1 gm/dL (13.0-17.5); Lymphocytes # (A) 1.8 k/uL (1.0-4.8); Lymphocytes % (A) 20 %; MCH 31.3 pg (25.0-35.0); MCHC 33.8 g/dL (31.0-37.0); MCV 92.5 fL (80.0-100.0); Mean Platelet Volume 10.2; Monocytes # (A) 0.4 k/uL (0-1.0); Monocytes % (A) 5 %; Neutrophils # (A) 6.2 k/uL (1.3-7.7); Neutrophils % (A) 71 %; Platelet Count 191 k/uL (150-450); RBC 5.15 m/uL (4.30-5.90); RDW 13.9 % (11.5-15.5); WBC 8.8 k/uL (3.8-10.6)
[2022-01-24 02:03] LABS: Appearance,Urine Clear (Clear); Bilirubin,Urine Negative (Negative); Blood,Urine Large (Negative); Calcium Oxalate Crystals,Urine Occasional /hpf; Color,Urine Yellow; Glucose,Urine (UA) Negative (Negative); Ketones,Urine Negative (Negative); Leukocyte Esterase,Urine Negative (Negative); Mucus,Urine Occasional /hpf; Nitrite,Urine Negative (Negative); Protein,Urine Trace (Negative); RBC,Urine 129 /hpf (0-5); Specific Gravity,Urine 1.025 (1.001-1.035); Squamous Epithelial Cell,Urine <1 /hpf (0-4); WBC,Urine 2 /hpf (0-5)
[2022-01-24 02:38] LABS: African American GFR (CKD) >90 (>60 ml/min/1.73 sqM); Anion Gap 8 mmol/L; Blood Urea Nitrogen 8 mg/dL (9-20); Calcium 8.7 mg/dL (8.4-10.2); Carbon Dioxide 22 mmol/L (22-30); Chloride 107 mmol/L (98-107); Glucose 129 mg/dL (74-99); Non-African American GFR(CKD) >90 (>60 ml/min/1.73 sqM); Potassium 4.1 mmol/L (3.5-5.1); Sodium 137 mmol/L (137-145)
--- NOTE | 2022-01-24 03:55 | ED ---
General Adult HPI - General Chief complaint: Back Pain/Injury Stated complaint: Flank pain Time Seen by Provider: 01/24/22 00:52 Source: EMS, RN notes reviewed Mode of arrival: EMS Limitations: no limitations - History of Present Illness Initial comments: 41-year-old male presents to the emergency department via EMS from home with complaints of sudden onset significant right flank pain. Patient states his pain was accompanied by diaphoresis and nausea. Also reports pain radiated from the right flank to the right groin. Patient denies any aggravating or alleviating factors. He did not take anything to treat his symptoms prior to arrival. Patient states he did have some urinary discomfort yesterday morning. Denies fever, chills, dizziness, chest pain, shortness of breath, vomiting, diarrhea, constipation, or hematuria. - Related Data Home Medications Medication Instructions Recorded Confirmed Desvenlafaxine Succinate [Pristiq 100 mg PO DAILY 11/29/13 03/06/19 ER] Omeprazole 20 mg PO DAILY 01/11/16 03/06/19 Metoprolol Succinate [Toprol XL] 25 mg PO HS 10/08/18 03/06/19 Previous Rx's Medication Instructions Recorded Ketorolac [Toradol] 10 mg PO Q8HR #15 tab 01/24/22 Ondansetron Odt [Zofran Odt] 4 mg PO Q8HR PRN #10 tab 01/24/22 Allergies Allergy/AdvReac Type Severity Reaction Status Date / Time Penicillins Allergy Mild Rash/Hives Verified 01/23/22 23:29 hydrocodone bitartrate AdvReac Dyspnea Verified 01/23/22 23:29 [From Vicodin] Review of Systems ROS Statement: Those systems with pertinent positive or pertinent negative responses have been documented in the HPI. ROS Other: All systems not noted in ROS Statement are negative. Past Medical History Past Medical History: GERD/Reflux, Hypertension, Sleep Apnea/CPAP/BIPAP Additional Past Medical History / Comment(s): swallowing difficulties, Low T History of Any Multi-Drug Resistant Organisms: None Reported Past Surgical History: No Surgical Hx Reported, Orthopedic Surgery Additional Past Surgical History / Comment(s): all teeth removed Past Anesthesia/Blood Transfusion Reactions: Motion Sickness Additional Past Anesthesia/Blood Transfusion Reaction / Comment(s): states has never had anesthesia Past Psychological History: Anxiety, Depression, Panic Disorder Smoking Status: Former smoker Past Alcohol Use History: Rare Past Drug Use History: Marijuana - Past Family History Father Family Medical History: Coronary Artery Disease (CAD) Brother(s) Family Medical History: Coronary Artery Disease (CAD) Additional Family Medical History / Comment(s): tricupsid valve replacement General Exam Limitations: no limitations (Well-developed, well-nourished female in no acute distress. Initial temperature 98.4, pulse 69, respirations 18, blood pressure 134/81, pulse ox 99% on room air.) General appearance: alert, in no apparent distress ENT exam: Present: normal exam, normal oropharynx Respiratory exam: Present: normal lung sounds bilaterally. Absent: respiratory distress, wheezes, rales, rhonchi, stridor Cardiovascular Exam: Present: regular rate, normal rhythm, normal heart sounds. Absent: systolic murmur, diastolic murmur, rubs, gallop, clicks GI/Abdominal exam: Present: soft, normal bowel sounds. Absent: distended, tenderness, guarding, rebound, rigid Back exam: Present: CVA tenderness (R) Neurological exam: Present: alert, oriented X3, normal gait Psychiatric exam: Present: normal affect, normal mood Skin exam: Present: warm, dry, intact, normal color. Absent: rash Course Vital Signs 01/23/22 23:26 Temperature 98.4 F Pulse Rate 69 Respiratory 18 Rate Blood Pressure 134/81 O2 Sat by Pulse 99 Oximetry - Reevaluation(s) Reevaluation #1: 01/24/22 03:30 Upon reassessment, patient is resting comfortably patient states his symptoms have significantly improved. He has updated on results of laboratory studies; CT pending. Medical Decision Making - Medical Decision Making This is a 41-year-old male with a past medical history of hypertension, sleep apnea, and GERD who presents to the emergency department for evaluation of right flank pain. Upon exam, patient is well-appearing and in no acute distress. He has mild right flank discomfort. His history is concerning for renal calculus. Laboratory studies were obtained. Urinalysis shows large amount of blood and 129 urine RBCs. Also present are calcium oxalate crystals. CT of the abdomen and pelvis shows 1-2 mm calcification in the bladder. There is no hydronephros is. Patient will be discharged home with Toradol for pain control and Zofran for nausea. Instructed to follow up with his PCP or urology. Discharge instructions were discussed in detail. Patient verbalizes understanding and agrees with this plan. Attending: Prem - Lab Data Result diagrams: 01/24/22 01:37 01/24/22 01:37 Lab Results 01/24/22 01/24/22 01/24/22 Range/Units 01:37 01:37 01:37 WBC 8.8 (3.8-10.6) k/uL RBC 5.15 (4.30-5.90) m/uL Hgb 16.1 (13.0-17.5) gm/dL Hct 47.6 (39.0-53.0) % MCV 92.5 (80.0-100.0) fL MCH 31.3 (25.0-35.0) pg MCHC 33.8 (31.0-37.0) g/dL RDW 13.9 (11.5-15.5) % Plt Count 191 (150-450) k/uL MPV 10.2 Neutrophils % 71 % Lymphocytes % 20 % Monocytes % 5 % Eosinophils % 2 % Basophils % 1 % Neutrophils # 6.2 (1.3-7.7) k/uL Lymphocytes # 1.8 (1.0-4.8) k/uL Monocytes # 0.4 (0-1.0) k/uL Eosinophils # 0.2 (0-0.7) k/uL Basophils # 0.1 (0-0.2) k/uL Sodium 137 (137-145) mmol/L Potassium 4.1 (3.5-5.1) mmol/L Chloride 107 (98-107) mmol/L Carbon Dioxide 22 (22-30) mmol/L Anion Gap 8 mmol/L BUN 8 L (9-20) mg/dL Creatinine 0.79 (0.66-1.25) mg/dL Est GFR (CKD-EPI)AfAm >90 (>60 ml/min/1.73 sqM) Est GFR (CKD-EPI)NonAf >90 (>60 ml/min/1.73 sqM) Glucose 129 H (74-99) mg/dL Calcium 8.7 (8.4-10.2) mg/dL Urine Color Yellow Urine Appearance Clear (Clear) Urine pH 6.0 (5.0-8.0) Ur Specific Sutton 1.025 (1.001-1.035) Urine Protein Trace H (Negative) Urine Glucose (UA) Negative (Negative) Urine Ketones Negative (Negative) Urine Blood Large H (Negative) Urine Nitrite Negative (Negative) Urine Bilirubin Negative (Negative) Urine Urobilinogen 6.0 (<2.0) mg/dL Ur Leukocyte Esterase Negative (Negative) Urine RBC 129 H (0-5) /hpf Urine WBC 2 (0-5) /hpf Ur Squamous Epith Cells <1 (0-4) /hpf Calcium Oxalate Crystal Occasional H (None) /hpf Urine Mucus Occasional H (None) /hpf - Radiology Data Radiology results: report reviewed, image reviewed CT of the abdomen and pelvis without contrast was obtained. Report was reviewed in its entirety. Impression per Dr. Kent is 1-2 mm calcification in the bladder adjacent to the right UPJ. Mild right ureterectasis without right hydronephrosis. No additional nephrolithiasis noted. Disposition Clinical Impression: Nephrolithiasis Disposition: HOME SELF-CARE Condition: Stable Instructions (If sedation given, give patient instructions): Kidney Stones (ED) Additional Instructions: Increase your intake of fluids. Take Toradol if needed for pain. Zofran is for nausea. Follow-up with your PCP or urology. Return to the emergency department with any new, worsening, or concerning symptoms. Prescriptions: Ketorolac [Toradol] 10 mg PO Q8HR #15 tab Ondansetron Odt [Zofran Odt] 4 mg PO Q8HR PRN #10 tab PRN Reason: Nausea Is patient prescribed a controlled substance at d/c from ED?: No Referrals: Robert Baker DO [Primary Care Provider] - 1-2 days Time of Disposition: 04:39
--- NOTE | 2022-01-24 04:32 | CT ---
EXAM: CT Abdomen and Pelvis Without Intravenous Contrast CLINICAL HISTORY: ITS.REASON CT Reason: Right Flank pain TECHNIQUE: Axial computed tomography images of the abdomen and pelvis without intravenous contrast. CTDI is 31.1 mGy and DLP is 1795.4 mGy-cm. This CT exam was performed using one or more of the following dose reduction techniques: automated exposure control, adjustment of the mA and/or kV according to patient size, and/or use of iterative reconstruction technique. COMPARISON: No relevant prior studies available. FINDINGS: Lung bases: Unremarkable. No mass. No consolidation. ABDOMEN: Liver: Unremarkable. Gallbladder and bile ducts: Unremarkable. No calcified stones. No ductal dilation. Pancreas: Unremarkable. No ductal dilation. Spleen: Unremarkable. No splenomegaly. Adrenals: Unremarkable. No mass. Kidneys and ureters: No nephrolithiasis or hydronephrosis noted bilaterally. Mild right ureteral distention. Stomach and bowel: No evidence for bowel obstruction. Evaluation of the bowel mucosa is slightly limited without contrast; however, no definite focal asymmetry suggested. PELVIS: Appendix: The normal caliber appendix is noted in the right lower quadrant. Bladder: 1-2 mm calcification in the bladder adjacent to the right UPJ. Mild mucosal prominence of the bladder is presumed related to under distention. No stones. Reproductive: Unremarkable as visualized. ABDOMEN and PELVIS: Intraperitoneal space: Unremarkable. No free air. No significant fluid collection. Bones/joints: No acute fracture. No dislocation. Soft tissues: Unremarkable. Vasculature: Unremarkable. No abdominal aortic aneurysm. Lymph nodes: Unremarkable. No enlarged lymph nodes. IMPRESSION: 1-2 mm calcification in the bladder adjacent to the right UPJ. Mild right ureterectasis without right hydronephrosis. No additional nephrolithiasis noted.
== END 2022-01-24 05:34 | disposition home or self-care (01) ==
LOC: EC 23:25
DX: N20.0 Calculus of kidney (principal); K21.9 Gastro-esophageal reflux disease without esophagitis; I10 Essential (primary) hypertension; Z79.83 Long term (current) use of bisphosphonates; Z88.0 Allergy status to penicillin; Z88.5 Allergy status to narcotic agent
CPT/HCPCS: 36415; 80048; 85025; 81001; 74176; 99284; 96374; 96375; 96361; J2405; J1885